=== PATIENT | male | born 1965 | race Caucasian/White ===

== ENCOUNTER 2016-12-24 06:02 | Day surgery (SDC) | payer OTHER, MEDICARE ==
[~2016-12-24] VITALS: Ht 182.9 cm; Wt 149.7 kg
[~2016-12-24 06:02] MED LIST: ADLT ASA LOW81 MG OR; ADVAIR DISK1 INH; ADVAIR DISK2 IN; ANDROGEL1 % TD; BACTRIM DS1 TAB OR; CARDIZEM CD240 MG PO; CEPHALEXIN500 MG OR; CIPRO500 MG OR; CIPROFLOXACN500 MG PO; COENZYME Q-10100 MG PO; COMBIVENT IN; CONTRAVE 8-90 M1 TAB; CONTRAVE PO; COUMADIN5 MG PO; COUMADIN7.5 MG OR; DIGOXIN0.25 MG PO; DILT-XR240 MG PO; DIOVAN40 MG OR; DIOVAN80 MG OR; DOXYCYCLINE20 MG PO; DOXYCYCLINE40 MG PO; FENOFIBRATE160 MG OR; FENOFIBRATE200 MG PO; FISH OIL MAXI1200 M1 PO; FLECAINIDE ACE100 MG PO; FLECAINIDE100 MG PO; FUROSEMIDE20 MG PO; GLYBURIDE5 MG PO; HYCODAN1 ML OR; KEFLEX500 M1 PO; LASIX20 MG PO; LIPITOR40 M1 PO; LISINOPRIL10 MG PO; LOFIBRA200 MG PO; LOPRESSOR25 MG PO; LOPRESSOR50 M1 PO; LORTAB 5/3255 MG PO; LORTAB 7.57.5 MG PO; LORTAB5 OR; LOVENOX 4040 MG/0.4 SC; MEDDOSEPAK OR; METFORMIN HCL1000 MG PO; METFORMIN HCL500 M2 PO; METOPROL TAR50 MG OR; METRONIDAZOL500 MG PO; OMEGA 31200 MG PO; ONGLYZA5 MG PO; ORACEA PO; PRAVASTATIN SOD20 MG PO; PREDNISONE10 M1 OR; PREVACID15 M1 PO; PREVACID15 M3 PO; SINGULAIR10 MG PO; TAMSULOSIN0.4 MG PO; TRUETEST STRIPS VI; WARFARIN10 MG OR; WARFARIN2.5 MG PO; WARFARIN5 MG PO; WARFARIN7.5 MG PO; ZITHROMAX250 MG OR
[2016-12-24 09:54] VITALS: BP 124/59
== END 2016-12-24 10:01 | disposition home or self-care (01) | DRG 392 ==
LOC: ENDO 06:02 → ORM 07:00 → ENDO 08:30 → ORM 08:45 → ENDO 08:45
PROVIDERS: ATTEND Surgery
PROC: 0DB78ZX Excision of Stomach, Pylorus, Via Natural or Artificial Opening Endoscopic, Diagnostic (ICD-10-PCS; principal; 2016-12-24)
PROC: 0DJD8ZZ Inspection of Lower Intestinal Tract, Via Natural or Artificial Opening Endoscopic (ICD-10-PCS; 2016-12-24)
DX: K21.9 Gastro-esophageal reflux disease without esophagitis (principal); K31.7 Polyp of stomach and duodenum; Z12.11 Encounter for screening for malignant neoplasm of colon; K29.50 Unspecified chronic gastritis without bleeding; K29.80 Duodenitis without bleeding; Z86.010 Personal history of colon polyps

== ENCOUNTER 2017-09-28 00:36 | Observation (INO) | payer OTHER, MEDICARE ==
[~2017-09-28] VITALS: Ht 182.9 cm; Wt 161.0 kg
[2017-09-28 01:12] LABS: HEMOGLOBIN 14.4 g/dl (14.0-18.0); IMMATURE GRANULOCYTES 0.4 % (0.0-1.0); MEAN CELL VOLUME 85.1 fL CALC (80.0-100.0); MEAN CORPUSCULAR HGB 27.9 pG CALC (26.0-32.0); MEAN CORPUSCULAR HGB CONC 32.7 g/L CALC (32.0-36.0); NEUT# 7.43 thou/uL (1.82-7.42); RED BLOOD COUNT 5.17 mill/uL (4.70-6.10)
[2017-09-28] MEDS ORDERED: TAMSULOSIN HCL0.4 MG PO (01:20)
[2017-09-28] MEDS ORDERED: DEXILANT60 MG PO (01:21)
[2017-09-28 01:38] LABS: ALBUMIN 4.2 g/dL (3.2-5.0); ALKALINE PHOSPHATASE 69 u/l (38-126); ANION GAP 16 (6-22 (CALC)); BILIRUBIN, TOTAL 0.7 mg/dL (0.0-1.4); BUN 15 mg/dL (9-20); BUN/CREATININE RATIO 16 (12-20 (CALC)); CARBON DIOXIDE 24 mmol/l (22-30); CHLORIDE 104 mmol/l (95-108); GFR > 60 ML/MIN (>=60 (CALC)); GFR FOR AFR.AMER. > 60 ML/MIN (>=60 (CALC)); POTASSIUM 4.1 mmol/l (3.5-5.1); SGOT/AST 29 u/l (17-59); SGPT/ALT 42 u/l (21-72); SODIUM 140 mmol/l (137-146); TOTAL PROTEIN 7.5 g/dL (6.3-8.2)
[2017-09-28 01:45] LABS: MYOGLOBIN 109 ng/mL (0 - 121)
[2017-09-28 01:49] LABS: INFLUENZA A NONE DETECTED (NONE DETECT); INFLUENZA B NONE DETECTED (NONE DETECT)
[2017-09-28 03:40] VITALS: BP 135/84
[2017-09-28 06:20] LABS: URINE BILIRUBIN - DIPSTICK NEGATIVE (NEGATIVE); URINE BLOOD DIPSTICK MODERATE (NEGATIVE); URINE COLOR YELLOW; URINE GLUCOSE - DIPSTICK 100 mg/dL (NEGATIVE); URINE KETONE NEGATIVE (NEGATIVE); URINE LEUK ESTERASE NEGATIVE (NEGATIVE); URINE NITRITE - DIPSTICK NEGATIVE (Negative); URINE PROTEIN - DIPSTICK 100 mg/dL (NEG-TRACE); URINE SPECIFIC GRAVITY >=1.030; URINE UROBILINOGEN - DIPSTICK 0.2 E.U./dL (0.2)
[2017-09-28 06:22] LABS: URINE CLARITY CLEAR
[2017-09-28 06:45] LABS: URINE BACTERIA MODERATE hpf; URINE MUCUS FEW hpf (NONE-FEW); URINE WBC 0-2 WBC/hpf (0-5)
[2017-09-28 06:50] LABS: URINE EPITHELIAL CELLS FEW EPI/hpf (0-FEW); URINE URIC ACID CRYSTALS FEW lpf
[2017-09-28 08:30] LABS: MAGNESIUM 1.7 mg/dL (1.6-2.3)
[2017-09-28 08:57] LABS: INTERNATIONAL NORMALIZED RATIO 1.6 RATIO (0.7-1.3); PROTHROMBIN TIME 17.5 SECONDS (9.0-12.5)
[2017-09-28 09:03] VITALS: BP 156/72
[2017-09-28 09:16] LABS: CHOLESTEROL HDL RATIO 3.9 (<4.4 (CALC))
[2017-09-28 11:00] VITALS: BP 138/100
[2017-09-28 11:57] VITALS: BP 136/93
[2017-09-28 15:24] VITALS: BP 125/72
[2017-09-28 19:59] VITALS: BP 146/94
[2017-09-29 00:13] VITALS: BP 140/85
[2017-09-29 04:56] VITALS: BP 107/86
[2017-09-29 05:32] LABS: HEMATOCRIT 41.6 % (39.0-50.0); HEMOGLOBIN 13.7 g/dl (14.0-18.0); IMMATURE GRANULOCYTES 0.4 % (0.0-1.0); MEAN CELL VOLUME 85.6 fL CALC (80.0-100.0); MEAN CORPUSCULAR HGB 28.2 pG CALC (26.0-32.0); MEAN CORPUSCULAR HGB CONC 32.9 g/L CALC (32.0-36.0); NEUT# 15.26 thou/uL (1.82-7.42); RED BLOOD COUNT 4.86 mill/uL (4.70-6.10); RED CELL DISTRI WIDTH 15.1 % (11.5-15.5)
[2017-09-29 05:40] LABS: ANION GAP 20 (6-22 (CALC)); BUN 17 mg/dL (9-20); BUN/CREATININE RATIO 24 (12-20 (CALC)); CARBON DIOXIDE 24 mmol/l (22-30); CHLORIDE 104 mmol/l (95-108); CREATININE 0.7 mg/dL (0.7-1.3); GFR > 60 ML/MIN (>=60 (CALC)); GFR FOR AFR.AMER. > 60 ML/MIN (>=60 (CALC)); MAGNESIUM 1.8 mg/dL (1.6-2.3); POTASSIUM 4.5 mmol/l (3.5-5.1); SODIUM 143 mmol/l (137-146)
[2017-09-29 08:21] VITALS: BP 142/81
[2017-09-29 08:40] LABS: INTERNATIONAL NORMALIZED RATIO 1.6 RATIO (0.7-1.3); PROTHROMBIN TIME 18.5 SECONDS (9.0-12.5)
[2017-09-29 12:03] VITALS: BP 124/67
[2017-09-29] MEDS ORDERED: IPRATROPIU0.5 MG/3 M NEB (12:18)
[2017-09-29] MEDS ORDERED: PREDNISONE10 MG PO (12:18)
[2017-09-29] MEDS ORDERED: ZITHROMAX500 MG PO (12:18)
== END 2017-09-29 13:44 | disposition home or self-care (01) | DRG 191 ==
LOC: ED 00:36 → ED-I 02:50 → ED 03:13 → MS2 03:14
PROVIDERS: Emergency Medicine; Nurse Practitioner Family; ADMIT Internal Medicine; ATTEND Internal Medicine
DX: J44.1 Chronic obstructive pulmonary disease with (acute) exacerbation (principal); J44.0 Chronic obstructive pulmonary disease with (acute) lower respiratory infection; J20.9 Acute bronchitis, unspecified; J45.901 Unspecified asthma with (acute) exacerbation; E66.01 Morbid (severe) obesity due to excess calories; I48.91 Unspecified atrial fibrillation; I48.92 Unspecified atrial flutter; Z68.42 Body mass index [BMI] 45.0-49.9, adult; G47.33 Obstructive sleep apnea (adult) (pediatric); E11.9 Type 2 diabetes mellitus without complications; E78.5 Hyperlipidemia, unspecified; I10 Essential (primary) hypertension; Z85.528 Personal history of other malignant neoplasm of kidney; Z79.01 Long term (current) use of anticoagulants
CPT/HCPCS: G0378

== ENCOUNTER 2017-11-04 06:47 | Day surgery (SDC) | payer OTHER, MEDICARE ==
[~2017-11-04 06:47] MED LIST changes: +ADVAIR DISK1 IN; +DEXILANT60 MG PO; +FISH OIL1200 M1 PO; +IPRATROPIU0.5 MG/3 M NEB; +PREDNISONE10 MG PO; +TAMSULOSIN HCL0.4 MG PO; +ZITHROMAX500 MG PO
[2017-11-04] MEDS ORDERED: MOTRIN800 MG PO (10:32)
[2017-11-04 11:38] VITALS: BP 132/72
== END 2017-11-04 10:55 | disposition home or self-care (01) | DRG 607 ==
LOC: ORM 06:47
PROVIDERS: ATTEND Surgery
PROC: 0HB4XZZ Excision of Neck Skin, External Approach (ICD-10-PCS; principal; 2017-11-04)
DX: L72.0 Epidermal cyst (principal); I48.91 Unspecified atrial fibrillation; I10 Essential (primary) hypertension; E78.5 Hyperlipidemia, unspecified; N40.0 Benign prostatic hyperplasia without lower urinary tract symptoms; E66.9 Obesity, unspecified

== ENCOUNTER 2019-02-13 06:32 | Emergency (ER) | payer OTHER, MEDICARE ==
[~2019-02-13] VITALS: Ht 182.9 cm; Wt 164.5 kg
[~2019-02-13 06:32] MED LIST changes: +MOTRIN800 MG PO
[2019-02-13 07:21] LABS: HEMATOCRIT 42.6 % (39.0-50.0); HEMOGLOBIN 13.8 g/dl (14.0-18.0); IMMATURE GRANULOCYTES 0.3 % (0.0-5.0); MEAN CELL VOLUME 83.9 fL CALC (80.0-100.0); MEAN CORPUSCULAR HGB 27.2 pG CALC (26.0-32.0); MEAN CORPUSCULAR HGB CONC 32.4 g/L CALC (32.0-36.0); NEUT# 4.84 thou/uL (1.82-7.42); RED BLOOD COUNT 5.08 mill/uL (4.70-6.10); RED CELL DISTRI WIDTH 14.6 % (11.5-15.5)
[2019-02-13 07:37] LABS: ALBUMIN 4.6 g/dL (3.2-5.0); ALKALINE PHOSPHATASE 54 u/l (38-126); ANION GAP 17 (6-22 (CALC)); BUN 19 mg/dL (9-20); BUN/CREATININE RATIO 19 (12-20 (CALC)); CARBON DIOXIDE 24 mmol/l (22-30); CHLORIDE 102 mmol/l (95-108); GFR > 60 ML/MIN (>=60 (CALC)); GFR FOR AFR.AMER. > 60 ML/MIN (>=60 (CALC)); SGOT/AST 29 u/l (17-59); SODIUM 140 mmol/l (137-146); TOTAL PROTEIN 7.6 g/dL (6.3-8.2)
[2019-02-13 07:49] LABS: MYOGLOBIN 182 ng/mL (0 - 121)
[2019-02-13 07:57] LABS: BILIRUBIN, TOTAL 0.8 mg/dL (0.0-1.4)
[2019-02-13] MEDS ORDERED: CEPHALEXIN500 MG PO (08:12)
[2019-02-13] MEDS ORDERED: ROBITUSSIN AC10 ML PO (08:12)
[2019-02-13 08:22] VITALS: BP 140/91
== END 2019-02-13 08:29 | disposition home or self-care (01) | DRG 153 ==
LOC: ED 06:32
PROVIDERS: Emergency Medicine
DX: J06.9 Acute upper respiratory infection, unspecified (principal); I11.0 Hypertensive heart disease with heart failure; I50.9 Heart failure, unspecified; I48.91 Unspecified atrial fibrillation

== ENCOUNTER 2019-08-03 | Emergency (ER) | payer OTHER, MEDICARE ==
[~2019-08-03] MED LIST changes: +CEPHALEXIN500 MG PO; +ROBITUSSIN AC10 ML PO
[2019-08-03] MEDS ORDERED: XARELTO20 MG PO (14:51)
[2019-08-03] MEDS ORDERED: IPRATROPIU0.5 MG/3 M IN (14:52)
[2019-08-03] MEDS ORDERED: METFORMIN HYD1000 MG PO (14:52)
[2019-08-03] MEDS ORDERED: CYCLOBENZAPRINE10 MG PO (14:52)
[2019-08-03] MEDS ORDERED: OXYCODONE10 M1 PO (14:53)
[2019-08-03 15:05] LABS: HEMATOCRIT 42.7 % (39.0-50.0); HEMOGLOBIN 13.9 g/dl (14.0-18.0); IMMATURE GRANULOCYTES 0.6 % (0.0-5.0); MEAN CELL VOLUME 84.4 fL CALC (80.0-100.0); MEAN CORPUSCULAR HGB 27.5 pG CALC (26.0-32.0); MEAN CORPUSCULAR HGB CONC 32.6 g/dL CAL (32.0-36.0); NEUT# 7.15 thou/uL (1.82-7.42); RED BLOOD COUNT 5.06 mill/uL (4.70-6.10); RED CELL DISTRI WIDTH 14.7 % (11.5-15.5)
[2019-08-03 15:23] LABS: ALBUMIN 4.6 g/dL (3.2-5.0); ALKALINE PHOSPHATASE 36 u/l (38-126); BUN 19 mg/dL (9-20); BUN/CREATININE RATIO 20 (12-20 (CALC)); CARBON DIOXIDE 22 mmol/l (22-30); CHLORIDE 98 mmol/l (95-108); GFR > 60 ML/MIN (>=60 (CALC)); GFR FOR AFR.AMER. > 60 ML/MIN (>=60 (CALC)); LIPASE 117 u/l (23-300); POTASSIUM 4.8 mmol/l (3.5-5.1); SGOT/AST 42 u/l (17-59); TOTAL PROTEIN 8.5 g/dL (6.3-8.2)
[2019-08-03 15:24] LABS: ANION GAP 17 (6-22 (CALC)); BILIRUBIN, TOTAL 1.4 mg/dL (0.0-1.4); SODIUM 132 mmol/l (137-146)
[2019-08-03 15:52] LABS: URINE BILIRUBIN - DIPSTICK NEGATIVE (NEGATIVE); URINE BLOOD DIPSTICK TRACE-LYSED (NEGATIVE); URINE COLOR YELLOW; URINE GLUCOSE - DIPSTICK NEGATIVE (NEGATIVE); URINE KETONE NEGATIVE (NEGATIVE); URINE LEUK ESTERASE TRACE (NEGATIVE); URINE NITRITE - DIPSTICK NEGATIVE (Negative); URINE PROTEIN - DIPSTICK TRACE mg/dL (NEG-TRACE); URINE SPECIFIC GRAVITY >=1.030; URINE UROBILINOGEN - DIPSTICK 0.2 E.U./dL (0.2)
[2019-08-03] MEDS ORDERED: VOLTAREN1%GEL TOP (16:06)
== END 2019-08-03 16:40 | disposition home or self-care (01) | DRG 392 ==
PROVIDERS: Family Medicine
DX: R10.9 Unspecified abdominal pain (principal); I11.0 Hypertensive heart disease with heart failure; I50.9 Heart failure, unspecified; I48.91 Unspecified atrial fibrillation; E11.9 Type 2 diabetes mellitus without complications; Z79.84 Long term (current) use of oral hypoglycemic drugs

== ENCOUNTER 2019-08-06 | Emergency (ER) | payer OTHER, MEDICARE ==
[~2019-08-06] MED LIST changes: +CYCLOBENZAPRINE10 MG PO; +IPRATROPIU0.5 MG/3 M IN; +METFORMIN HYD1000 MG PO; +OXYCODONE10 M1 PO; +VOLTAREN1%GEL TOP; +XARELTO20 MG PO
[2019-08-06 04:38] LABS: HEMATOCRIT 43.5 % (39.0-50.0); IMMATURE GRANULOCYTES 0.4 % (0.0-5.0); MEAN CELL VOLUME 85.6 fL CALC (80.0-100.0); MEAN CORPUSCULAR HGB 27.6 pG CALC (26.0-32.0); MEAN CORPUSCULAR HGB CONC 32.2 g/dL CAL (32.0-36.0); NEUT# 9.87 thou/uL (1.82-7.42); RED BLOOD COUNT 5.08 mill/uL (4.70-6.10); RED CELL DISTRI WIDTH 14.5 % (11.5-15.5)
[2019-08-06 04:40] LABS: URINE BILIRUBIN - DIPSTICK NEGATIVE (NEGATIVE); URINE BLOOD DIPSTICK LARGE (NEGATIVE); URINE COLOR YELLOW; URINE GLUCOSE - DIPSTICK 250 mg/dL (NEGATIVE); URINE KETONE NEGATIVE (NEGATIVE); URINE LEUK ESTERASE TRACE (NEGATIVE); URINE NITRITE - DIPSTICK NEGATIVE (Negative); URINE PH 5.5 (4.5-8.0); URINE PROTEIN - DIPSTICK 100 mg/dL (NEG-TRACE); URINE SPECIFIC GRAVITY >=1.030; URINE UROBILINOGEN - DIPSTICK 0.2 E.U./dL (0.2)
[2019-08-06 04:50] LABS: URINE RBC 50-100 RBC/hpf (0-5); URINE URIC ACID CRYSTALS MANY lpf
[2019-08-06 05:01] LABS: ALBUMIN 4.4 g/dL (3.2-5.0); ALKALINE PHOSPHATASE 49 u/l (38-126); AMYLASE < 30 u/l (30-110); ANION GAP 17 (6-22 (CALC)); BILIRUBIN, TOTAL 0.7 mg/dL (0.0-1.4); BUN 27 mg/dL (9-20); BUN/CREATININE RATIO 16 (12-20 (CALC)); CARBON DIOXIDE 24 mmol/l (22-30); CHLORIDE 100 mmol/l (95-108); CREATININE 1.6 mg/dL (0.7-1.3); GFR 45 ML/MIN (>=60 (CALC)); GFR FOR AFR.AMER. 55 ML/MIN (>=60 (CALC)); LIPASE 209 u/l (23-300); SGOT/AST 25 u/l (17-59); SODIUM 136 mmol/l (137-146); TOTAL PROTEIN 7.6 g/dL (6.3-8.2)
[2019-08-06] MEDS ORDERED: TAMSULOSIN0.4 MG PO (05:58)
[2019-08-06] MEDS ORDERED: LORTAB 5/3255 MG PO (05:58)
[2019-08-06] MEDS ORDERED: PHENERGAN25 MG RE (05:58)
[2019-08-07] MEDS ORDERED: PREDNISONE50 MG PO (04:43)
== END 2019-08-06 06:06 | disposition home or self-care (01) | DRG 694 ==
PROVIDERS: Family Medicine
DX: N13.2 Hydronephrosis with renal and ureteral calculous obstruction (principal); I11.0 Hypertensive heart disease with heart failure; I50.9 Heart failure, unspecified; E11.9 Type 2 diabetes mellitus without complications; I48.91 Unspecified atrial fibrillation; Z85.528 Personal history of other malignant neoplasm of kidney; Z90.5 Acquired absence of kidney; Z79.84 Long term (current) use of oral hypoglycemic drugs

== ENCOUNTER 2019-08-07 | Emergency (ER) | payer OTHER, MEDICARE ==
[~2019-08-07] MED LIST changes: +PHENERGAN25 MG RE
[2019-08-07 03:33] LABS: HEMATOCRIT 43.1 % (39.0-50.0); HEMOGLOBIN 13.8 g/dl (14.0-18.0); IMMATURE GRANULOCYTES 0.4 % (0.0-5.0); MEAN CORPUSCULAR HGB 27.5 pG CALC (26.0-32.0); NEUT# 6.93 thou/uL (1.82-7.42); RED BLOOD COUNT 5.01 mill/uL (4.70-6.10); RED CELL DISTRI WIDTH 14.9 % (11.5-15.5)
[2019-08-07 03:45] LABS: D-DIMER 0.87 mg/L (0.19-0.60); PROTHROMBIN TIME 19.9 SECONDS (9.0-12.5)
[2019-08-07 03:46] LABS: ALBUMIN 4.6 g/dL (3.2-5.0); ALKALINE PHOSPHATASE 51 u/l (38-126); BUN 26 mg/dL (9-20); BUN/CREATININE RATIO 11 (12-20 (CALC)); CHLORIDE 98 mmol/l (95-108); CREATININE 2.3 mg/dL (0.7-1.3); GFR 30 ML/MIN (>=60 (CALC)); GFR FOR AFR.AMER. 36 ML/MIN (>=60 (CALC)); POTASSIUM 3.8 mmol/l (3.5-5.1); SGOT/AST 28 u/l (17-59); SODIUM 136 mmol/l (137-146); TOTAL PROTEIN 8.3 g/dL (6.3-8.2)
[2019-08-07 03:53] LABS: ANION GAP 25 (6-22 (CALC)); BILIRUBIN, TOTAL 1.4 mg/dL (0.0-1.4); CARBON DIOXIDE 17 mmol/l (22-30)
[2019-08-07 03:58] LABS: MYOGLOBIN 113 ng/mL (0 - 121)
[2019-08-07] MEDS ORDERED: PREDNISONE50 MG PO (04:43)
== END 2019-08-07 05:05 | disposition home or self-care (01) | DRG 203 ==
PROVIDERS: Family Medicine
DX: J45.901 Unspecified asthma with (acute) exacerbation (principal); I11.0 Hypertensive heart disease with heart failure; I50.9 Heart failure, unspecified; E11.9 Type 2 diabetes mellitus without complications; Z79.84 Long term (current) use of oral hypoglycemic drugs; Z20.828 Contact with and (suspected) exposure to other viral communicable diseases

== ENCOUNTER 2019-08-08 | Inpatient (IN) | payer OTHER, MEDICARE ==
[2019-08-08] VITALS (19 sets, daily range): BP systolic 71–142; BP diastolic 45–79
[~2019-08-08] MED LIST changes: +PREDNISONE50 MG PO
--- NOTE | 2019-08-08 03:45 | NUR ---
TO TX ROOM VIA W/C. AT SIDE. STATES WAS FINE YESTERDAY MORNING BUT BECAME SOB JUST WITHIN THE PAST HOUR... "SAME LAST NIGHT"
--- NOTE | 2019-08-08 04:15 | NUR ---
PATIENT RECEIVING NEB TREATMENT. IV ESTABLISHED AND SECURED WITH COBAN. PATIENT IS DIAPHORETIC AND COOL. PATIENT SAT IS 96%, HEART RATE AND BP ELEVATED. MD AWARE. AWAITING ORDERS.
--- NOTE | 2019-08-08 04:45 | NUR ---
PATIENT STATES LITTLE CHANGE IN HIS FEELING OF SOB. PATIENT HAS A NON PRODUCTIVE COUGH, C/O FEELING WEAK AND TIRED. STATES HE HASN'T EATEN OR SLEPT WELL IN DAYS. PATIENT MEDICATED FOR HR AND BP. WILL MONITOR FOR EFFECT. CALL LIGHT WITHIN REACH. PATIENT'S AT BEDSIDE. AWARE OF PENDING LABS AND PROBABLE ADMISSION.
[2019-08-08 05:16] LABS: HEMATOCRIT 38.3 % (39.0-50.0); HEMOGLOBIN 12.8 g/dl (14.0-18.0); IMMATURE GRANULOCYTES 3.4 % (0.0-5.0); MEAN CELL VOLUME 82.2 fL CALC (80.0-100.0); MEAN CORPUSCULAR HGB 27.5 pG CALC (26.0-32.0); MEAN CORPUSCULAR HGB CONC 33.4 g/dL CAL (32.0-36.0); NEUT# 5.08 thou/uL (1.82-7.42); RED BLOOD COUNT 4.66 mill/uL (4.70-6.10); RED CELL DISTRI WIDTH 15.1 % (11.5-15.5)
[2019-08-08 05:28] LABS: ALBUMIN 3.9 g/dL (3.2-5.0); POTASSIUM 3.2 mmol/l (3.5-5.1); TOTAL PROTEIN 7.3 g/dL (6.3-8.2)
[2019-08-08 05:32] LABS: BILIRUBIN, TOTAL 0.8 mg/dL (0.0-1.4); CREATININE 3.7 mg/dL (0.7-1.3)
--- NOTE | 2019-08-08 05:46 | NUR ---
PATIENT MEDICATED ORDERED. DISCUSSED LABS WITH PATIENT AND SPOUSE. STATES HE HAS HAD TROUBLE WITH DEHYDRATION IN THE PAST AND OFTEN HAS DIARRHEA FROM HIS METFORMIN. PATIENT ADMITS TO POOR PO INTAKE FOR THE LAST SEVERAL DAYS.
--- NOTE | 2019-08-08 06:15 | NUR ---
CARDIZEM GTT INCREASED TO 10MG. HR 130. PATIENT TOLERATING FLUIDS AND CARDIZEM WELL. ABLE TO SIT BACK ON STRETCHER. PATIENT AWARE OF ADMISSION. AWAITING ORDERS AND ROOM ASSIGNMENT. PATIENT DENIES ANY NEW COMPLAINTS.
--- NOTE | 2019-08-08 06:44 | NUR ---
CARDIZEM REMAINS AT 10MG. BP 100/55. PATIENT STATES HE IS FEELING A LITTLE BETTER. MED RECON COMPLETED WITH PATIENT AND SPOUSE.
--- NOTE | 2019-08-08 06:53 | NUR ---
REPORT CALLED TO [facility]. PATIENT READIED FOR TRANSPORT TO FLOOR VIA STRETCHER, ON O2, WITH RN
--- NOTE | 2019-08-08 07:23 | NUR ---
PT ARRIVED TO ICU8 FROM ER BY STRETCHER WITH CARDIZEM & NS, TELE, & 2L O2. PT ABLE TO TRANSFER TO NEW BED; PT BECAME SOB. O2 TITRATED UP TO 4L NC.
--- NOTE | 2019-08-08 07:32 | NUR ---
RT CALLED D/T PTS LABORED BREATHING/ EXERTIONAL SOB AFTER TRANSFERING TO NEW BED.
--- NOTE | 2019-08-08 07:42 | NUR ---
PT ASKED THIS RN TO CALL HIS FOR ADMISSION QUESTIONS. IS DRIVING, WILL CALL BACK WHEN SHE GETS TO HER DESK.
--- NOTE | 2019-08-08 07:51 | NUR ---
CALLED TO PT ROOM TO GIVE TX. PT EXPIERENCING LABORED RESPIRATIONS AT THIS TIME. JOSE ANTONIO KIRK AWARE AND AT BEDSIDE. HR 126 RR 20
--- NOTE | 2019-08-08 08:00 | NUR ---
PT CAME TO [facility] ER FOR SOB STARTING EARLY THIS AM. PT WAS SEEN IN [facility] ER LAST THU, THU, & SAT FOR BACK PAIN & KIDNEY STONES. STATES PT HAS BEEN GETTING WEAKER & MORE SOB ALL WEAK. DENIES ALLERGIES. DIARRHEA x1 WEEK, WHICH SOME TIMES HAPPENS WITH HIS METFORMIN. NON INSULIN DEPENDENT DIABETIC. PT HAS HAD DARK URINE. BRUISES ON ARMS FROM FREQUENT VISITS TO ER. REDDNESS TO BLE. NO RECENT FALLS. NO MOBILITY AIDS AT HOME. TAKES OXY OCCASSIONALY FOR PAIN. AMISH: NONE. PRIMARY LANGUAGE: ENGLLISH. LIVES AT HOME WITH , DRIVES SELF. DR Jaren MCLEOD IS BOOT MAKER.
--- NOTE | 2019-08-08 08:25 | NUR ---
2ND IV ESTABLISHED TO LFA. MAGNESIUM DRIP STARTED.
--- NOTE | 2019-08-08 08:35 | NUR ---
DR JOHNSON @BEDSIDE WITH PT. PTS BREATHING LESS LABORED. REMAINS DIAPHORETIC. EXPIRATORY WHEEZING & COARSE CRACKLES TO ALL LOBES. TACHYCARDIC, HYPOTENSIVE. NS OPENED TO BOLUS, PER DR JOHNSON.
--- NOTE | 2019-08-08 09:47 | NUR ---
STAFF @BEDSIDE TO ASSIST PT WITH URINAL.
--- NOTE | 2019-08-08 10:55 | NUR ---
@BEDSIDE TO DRAW TROPONIN. PT REFUSING CATH ANIYA. PT STATES HE'S GOING TO CALL PATTI (FROM LAB) TO FIND OUT HIS TEST RESULTS. EDUCATED PT ON HIPPA. NO COVID RESULTS BACK AT THIS TIME.
--- NOTE | 2019-08-08 11:02 | NUR ---
DR JOHNSON ON UNIT
--- NOTE | 2019-08-08 11:35 | NUR ---
ACCUCHECK COMPLETED: 255. #16F CATH KWAN INSERTED, PER PT REQUEST, USING STERILE TECHNIQUE. PT MEDICATED TO HELP PT RELAX. RT @BEDSIDE.
--- NOTE | 2019-08-08 12:00 | NUR ---
PT OBSERVED RESTING IN BED, USING ABD & ACCESSORY MUSCLES TO BREATH. DR JOHNSON NOTIFIED, RBVOT FOR ABG. RT AWARE.
--- NOTE | 2019-08-08 12:00 | NUR ---
PT BACK ON UNIT. ABLE TO AMBULATE TO NEW BED. ON MONITORS. ABLE TO COMMUNICATE WITH STAFF, FREINDLY, JOKING. PT LOOKING FOWARD TO EATING LUNCH.
--- NOTE | 2019-08-08 12:30 | NUR ---
DR CROFT @BEDSIDE FOR CONSULT.
--- NOTE | 2019-08-08 13:40 | NUR ---
RT @BEDSIDE TO PLACE PT ON BIPAP. PT UPDATED ON POC.
--- NOTE | 2019-08-08 14:17 | NUR ---
@BEDSIDE TO START IV ABX, PTS BREATHING EVEN/UNLABORED ON BIPAP. AWARE.
--- NOTE | 2019-08-08 15:02 | NUR ---
STATE RESULTS OF COVID STILL PENDING. TESTED THURSDAY.
--- NOTE | 2019-08-08 17:30 | NUR ---
PT SLEEPING IN ROOM. BREATHING EVEN/UNLABORED. CALLBELL W/IN REACH. NO S/S OF DISTRESS AT THIS TIME. WILL CONTINUE TO MONITOR.
--- NOTE | 2019-08-08 18:02 | NUR ---
RT @BEDSIDE FRO BREATHING TREATMENT.
--- NOTE | 2019-08-08 18:44 | NUR ---
PT C/O SHARP PAIN TO GENERALIZED BACK. MEDICATED & PILLOWS REPOSITIONED. DINNER PLACED ON PTS BEDSIDE TABLE. PT STATES HE ONLY WANTS THE COLD DRINK.
--- NOTE | 2019-08-08 18:55 | NUR ---
RECEIVED REPORT FROM [facility].
--- NOTE | 2019-08-08 19:35 | NUR ---
PT AWAKE AND ALERT, ATE 50% DINNER. PT RELATED HIS BUTT WAS SORE, ENCOURAGED PT TO REPOSITION SELF. NO C/O RESP DIFF AT THIS TIME. CALL KAMARA IN PLACE.
--- NOTE | 2019-08-08 20:00 | NUR ---
RECEIVED STATE COVID RESULT OF "NOT DETECTED"
--- NOTE | 2019-08-08 21:20 | NUR ---
CALL PLACED TO DR CROFT REGARDING HEPARIN GTT. MESSAGE LEFT.
--- NOTE | 2019-08-08 21:50 | NUR ---
DR CROFT RETURNED CALL, HEPARIN GTT ORDER CLARIFIED.
--- NOTE | 2019-08-08 22:00 | NUR ---
RESP AT BEDSIDE, RECEIVING NEB TX. PT PLACED ON BI-PAP.
[2019-08-09] VITALS (32 sets, daily range): BP systolic 57–205; BP diastolic 11–111
--- NOTE | 2019-08-09 | NUR ---
PT WITH EYES CLOSED, TOLERATING C-PAP WITH NO DISTRESS. CALL KAMARA IN REACH.
--- NOTE | 2019-08-09 02:00 | NUR ---
PT ON BI-PAP, TOLERATING WELL. PT SLEEPING, RESPONDS TO VERBAL STIMULI. CALL KAMARA IN REACH.
[2019-08-09 03:51] LABS: URINE BILIRUBIN - DIPSTICK NEGATIVE (NEGATIVE); URINE BLOOD DIPSTICK LARGE (NEGATIVE); URINE COLOR YELLOW; URINE GLUCOSE - DIPSTICK NEGATIVE (NEGATIVE); URINE KETONE NEGATIVE (NEGATIVE); URINE NITRITE - DIPSTICK NEGATIVE (Negative); URINE PROTEIN - DIPSTICK TRACE mg/dL (NEG-TRACE); URINE SPECIFIC GRAVITY 1.025; URINE UROBILINOGEN - DIPSTICK 0.2 E.U./dL (0.2)
[2019-08-09 03:53] LABS: PROTHROMBIN TIME 14.5 SECONDS (9.0-12.5)
[2019-08-09 03:56] LABS: INTERNATIONAL NORMALIZED RATIO 1.4 RATIO (0.7-1.3)
[2019-08-09 03:57] LABS: URINE LEUK ESTERASE TRACE (NEGATIVE)
[2019-08-09 03:58] LABS: URINE BACTERIA FEW hpf; URINE EPITHELIAL CELLS MODERATE EPI/hpf (0-FEW); URINE MUCUS MODERATE hpf (NONE-FEW)
--- NOTE | 2019-08-09 04:00 | NUR ---
PT AWAKE AND ALERT. RESP AT BEDSIDE, NEB TX INITIATED. PLACED ON NC AFTER NEB TX BY RESP. CALL KAMARA IN REACH.
[2019-08-09 05:53] LABS: HEMATOCRIT 33.2 % (39.0-50.0); IMMATURE GRANULOCYTES 0.9 % (0.0-5.0); MEAN CELL VOLUME 85.1 fL CALC (80.0-100.0); MEAN CORPUSCULAR HGB 27.2 pG CALC (26.0-32.0); MEAN CORPUSCULAR HGB CONC 31.9 g/dL CAL (32.0-36.0); NEUT# 11.44 thou/uL (1.82-7.42); RED BLOOD COUNT 3.9 mill/uL (4.70-6.10); RED CELL DISTRI WIDTH 15.9 % (11.5-15.5)
--- NOTE | 2019-08-09 06:00 | NUR ---
HEPARIN GTT STARTED PER LOW DOSE, 2500 UNIT BOLUS 1000 UNITS PER HOUR
[2019-08-09 06:10] LABS: HEMOGLOBIN 10.6 g/dl (14.0-18.0)
[2019-08-09 06:18] LABS: CREATININE 2.9 mg/dL (0.7-1.3)
[2019-08-09 06:26] LABS: MAGNESIUM 2.4 mg/dL (1.6-2.3); POTASSIUM 4.5 mmol/l (3.5-5.1)
--- NOTE | 2019-08-09 06:45 | NUR ---
ANSWERED PTS CALLBELL TO FIND PT WITH LABORED BREATHING & BARKING COUGH. PLACED PT BACK ON BIPAP AND TRIED TO REPOSITION PT IN BED. CALLED HOUSE SUP FOR ATIVAN- NOT IN ICU PYXIS. ASKED FOR ASSISTANCE FROM OTHER ICU STAFF.
--- NOTE | 2019-08-09 06:58 | NUR ---
0645 PLACED PT BACK ON BIPAP FROM NC. PER SHIFT REPORT, PT WAS REMOVED FROM BIPAP AND PLACED ON NC AROUND 0500 & HEPARIN DRIP STARTED AROUND 0600. [address] JOHNSON TO UPDATE ON PTS STATUS. PT IN SVT IN 170'S & RESPIRATORY DISTRESS. 0658 RAPID RESPONSE CALLED. 0658 LOPRESSOR 5MG GIVEN IVP. ATIVAN 0.5MG GIVEN IVP. 0705 AFIB RATE IN 140'S. DR ESTRADA & RT @BEDSIDE. 0706 ACCUCHECK 230 0707 PT PREPPED FOR INTUBATION. PT AGREED TO INTUBATION, STATING HE WAS TIRED. 0710 EKG COMPLETED: AFIB RBR W/RATE OF 139 0712 NOTIFIED OF PTS STATUS. 0714 @BEDSIDE. 0721 ETOMIDATE 20MG & ROCORONIUM 150MG PUSHED BY DR ESTRADA. BP 138/72 0724 PT INTUBATED W/ETT 8.0, 22@LIP. 0733 CARDIZEM BOLUS OF 10MG THEN DRIP STARTED AT 10MG/HR. 0736 PT PREPPED FOR LEFT TRIPLE LUMEN IV. 0736 CARDIZEM 10MG IV BOLUS AGAIN. 0738 BP 205/98, HR 164, SATS 93% 0739 CALLED FOR STAT CXR TO VERIFY PLACEMENTS. 0741 PROPOFOL DRIP STARTED @20 0743 TLC COMPLETED 0746 CARDIZEM 10MG BOLUS AGAIN. 0747 FENTANYL 50MCG IVP BY DR ESTRADA. 0748 PROPOFUL BOLUS 15MG GIVEN PER VERBAL ORDER BY DR ESTRADA. 0750 PROPOFOL TITRATED UP TO 30. 0752 #18F OG PLACED. [address] ESTRADA SPOKE WITH DR JOHNSON. RAPID RESPONSE ALL CLEAR.
--- NOTE | 2019-08-09 08:27 | NUR ---
DR ESTRADA CALLED AFTER CXR RESULTS TO ASK RT TO DO AN ABG FROM NEW CENTRAL LINE D/R CXR RESULTS.
--- NOTE | 2019-08-09 09:20 | NUR ---
PHONED [facility] SPOKE TO [facility] RICKS INTIATED AT THIS TIME. CALLED RADIOLOGY FOR CD. FACE SHEET FAXED TO [facility] WELL.
--- NOTE | 2019-08-09 09:22 | NUR ---
LINK VICENTE GAVE TELEPHONE VERBAL CONSENT X2 NURSES Shalini CAMPO AND Surekha JUAREZ.
--- NOTE | 2019-08-09 09:38 | NUR ---
UPDATED DR CROFT ON PTS STATUS. RBVTO DR CROFT TO DC CARDIZEM DRIP & START AMIODORONE DRIP WITH 150 BOLUS. ORDER FAXED TO PHARMACY
--- NOTE | 2019-08-09 09:50 | NUR ---
SPOKE WITH MISBAH AT [facility] DR GHASSAN NOVAK WILL BE THE ACCEPTING MD. AWAITING BED ASSIGNMENT AT THIS TIME
--- NOTE | 2019-08-09 10:47 | NUR ---
CVP INITIATED ON CENTRAL LINE.
--- NOTE | 2019-08-09 11:17 | NUR ---
MISBAH FROM [facility] CALLED BED WILL BE 4R BED 10
--- NOTE | 2019-08-09 11:23 | NUR ---
CALLED [facility] FOR TRANSPORT.
--- NOTE | 2019-08-09 11:34 | NUR ---
[facility] ETA 18MINS
--- NOTE | 2019-08-09 11:52 | NUR ---
REPORT GIVEN TO MEÑO @[facility]. [phone]
--- NOTE | 2019-08-09 12:02 | NUR ---
[facility] @BEDSIDE WILL SEND THE NEXT APPROPRIATE AIRCRAFT.
--- NOTE | 2019-08-09 12:15 | NUR ---
PER [facility], THE PT IS TO LARGE FOR THEM. MD AWARE, STATES PT CAN GO BY GROUND.
--- NOTE | 2019-08-09 12:29 | NUR ---
[facility] ETA 30MINS
--- NOTE | 2019-08-09 13:46 | NUR ---
LEVOPHED STARTED @8 ON PT FOR HYPOTENSION.
--- NOTE | 2019-08-09 14:00 | NUR ---
PT OUT THE DOOR WITH [facility], IN STABLE CONDITION. NOTIFIED
--- NOTE | 2019-08-09 14:01 | NUR ---
PT TRANSPORTED TO [facility].
== END 2019-08-09 14:00 | disposition short-term general hospital (02) | DRG 208 ==
PROVIDERS: Family Medicine; Internal Medicine; ADMIT Internal Medicine
PROC: 5A09357 Assistance with Respiratory Ventilation, Less than 24 Consecutive Hours, Continuous Positive Airway Pressure (ICD-10-PCS; principal; 2019-08-08)
PROC: 0T9B70Z Drainage of Bladder with Drainage Device, Via Natural or Artificial Opening (ICD-10-PCS; 2019-08-08)
PROC: 5A1935Z Respiratory Ventilation, Less than 24 Consecutive Hours (ICD-10-PCS; 2019-08-09)
PROC: 0BH17EZ Insertion of Endotracheal Airway into Trachea, Via Natural or Artificial Opening (ICD-10-PCS; 2019-08-09)
PROC: 02HV33Z Insertion of Infusion Device into Superior Vena Cava, Percutaneous Approach (ICD-10-PCS; 2019-08-09)
DX: J45.901 Unspecified asthma with (acute) exacerbation (principal); J18.9 Pneumonia, unspecified organism; J96.02 Acute respiratory failure with hypercapnia; J96.01 Acute respiratory failure with hypoxia; N17.9 Acute kidney failure, unspecified; E87.2 Acidosis; I48.19 Other persistent atrial fibrillation; Z68.42 Body mass index [BMI] 45.0-49.9, adult; E86.0 Dehydration; I11.0 Hypertensive heart disease with heart failure; I50.9 Heart failure, unspecified; E87.6 Hypokalemia; G47.33 Obstructive sleep apnea (adult) (pediatric); E78.5 Hyperlipidemia, unspecified; E66.01 Morbid (severe) obesity due to excess calories; N20.0 Calculus of kidney; E83.42 Hypomagnesemia; E11.65 Type 2 diabetes mellitus with hyperglycemia; T38.0X5A Adverse effect of glucocorticoids and synthetic analogues, initial encounter; I95.9 Hypotension, unspecified; Z79.01 Long term (current) use of anticoagulants; Z79.84 Long term (current) use of oral hypoglycemic drugs; Z85.528 Personal history of other malignant neoplasm of kidney; Z90.5 Acquired absence of kidney
CPT/HCPCS: J0282; J1644; J2060; J3475

== ENCOUNTER 2020-04-27 06:28 | Emergency (ER) | payer OTHER, MEDICARE ==
[~2020-04-27] VITALS: Ht 182.9 cm; Wt 156.8 kg
[2020-04-27 07:05] LABS: HEMATOCRIT 45.8 % (39.0-50.0); HEMOGLOBIN 14.5 g/dl (14.0-18.0); IMMATURE GRANULOCYTES 0.3 % (0.0-5.0); MEAN CELL VOLUME 85.3 fL CALC (80.0-100.0); MEAN CORPUSCULAR HGB CONC 31.7 g/dL CAL (32.0-36.0); NEUT# 6.37 thou/uL (1.82-7.42); RED BLOOD COUNT 5.37 mill/uL (4.70-6.10); RED CELL DISTRI WIDTH 15.1 % (11.5-15.5)
[2020-04-27 07:23] LABS: ALBUMIN 4.3 g/dL (3.2-5.0); ALKALINE PHOSPHATASE 70 u/l (38-126); ANION GAP 15 (6-22 (CALC)); BILIRUBIN, TOTAL 0.5 mg/dL (0.0-1.4); BUN 19 mg/dL (9-20); BUN/CREATININE RATIO 21 (12-20 (CALC)); CARBON DIOXIDE 22 mmol/l (22-30); CHLORIDE 104 mmol/l (95-108); CREATININE 0.9 mg/dL (0.7-1.3); GFR > 60 ML/MIN (>=60 (CALC)); GFR FOR AFR.AMER. > 60 ML/MIN (>=60 (CALC)); POTASSIUM 4.2 mmol/l (3.5-5.1); SGOT/AST 23 u/l (17-59); SODIUM 138 mmol/l (137-146); TOTAL PROTEIN 7.1 g/dL (6.3-8.2)
[2020-04-27 07:36] VITALS: BP 132/72
[2020-04-27] MEDS ORDERED: HYDROXYZINE HYD25 MG PO (09:14)
[2020-04-27] MEDS ORDERED: BACTRIM DS1 TAB PO (09:14)
[2020-04-27] MEDS ORDERED: KEFLEX500 MG PO (09:14)
[2020-04-27] MEDS ORDERED: ULTRAM50 MG PO (09:14)
== END 2020-04-27 09:50 | disposition home or self-care (01) | DRG 603 ==
LOC: ED 06:28
PROVIDERS: Family Medicine
DX: L03.113 Cellulitis of right upper limb (principal); L30.9 Dermatitis, unspecified; L28.0 Lichen simplex chronicus; I48.91 Unspecified atrial fibrillation; E11.9 Type 2 diabetes mellitus without complications; I10 Essential (primary) hypertension; I50.9 Heart failure, unspecified; E78.5 Hyperlipidemia, unspecified; J45.909 Unspecified asthma, uncomplicated; Z79.01 Long term (current) use of anticoagulants; Z79.84 Long term (current) use of oral hypoglycemic drugs

== ENCOUNTER 2020-08-25 09:40 | Observation (INO) | payer OTHER, MEDICARE ==
[~2020-08-25] VITALS: Ht 182.9 cm; Wt 125.0 kg
[~2020-08-25 09:40] MED LIST changes: +BACTRIM DS1 TAB PO; +HYDROXYZINE HYD25 MG PO; +KEFLEX500 MG PO; +ULTRAM50 MG PO
--- NOTE | 2020-08-25 09:55 | NUR ---
PT AMBULATED TO ROOM AND PLACED IN A GOWN. PT INSTRUCTED IN PLAN OF CARE.
--- NOTE | 2020-08-25 10:00 | NUR ---
Reassessment of patient completed. No distress noted.
[2020-08-25 10:39] LABS: HEMATOCRIT 41.6 % (39.0-50.0); HEMOGLOBIN 13.4 g/dl (14.0-18.0); IMMATURE GRANULOCYTES 0.6 % (0.0-5.0); MEAN CELL VOLUME 83.9 fL CALC (80.0-100.0); MEAN CORPUSCULAR HGB CONC 32.2 g/dL CAL (32.0-36.0); NEUT# 12.19 thou/uL (1.82-7.42); RED BLOOD COUNT 4.96 mill/uL (4.70-6.10); RED CELL DISTRI WIDTH 15.2 % (11.5-15.5)
[2020-08-25 10:46] LABS: URINE BILIRUBIN - DIPSTICK NEGATIVE (NEGATIVE); URINE BLOOD DIPSTICK MODERATE (NEGATIVE); URINE COLOR YELLOW; URINE GLUCOSE - DIPSTICK NEGATIVE (NEGATIVE); URINE KETONE NEGATIVE (NEGATIVE); URINE LEUK ESTERASE TRACE (NEGATIVE); URINE PH 5.5 (4.5-8.0); URINE PROTEIN - DIPSTICK >=300 mg/dL (NEG-TRACE); URINE SPECIFIC GRAVITY 1.025; URINE UROBILINOGEN - DIPSTICK 0.2 E.U./dL (0.2)
[2020-08-25 10:56] LABS: ALBUMIN 4.5 g/dL (3.2-5.0); ALKALINE PHOSPHATASE 61 u/l (38-126); ANION GAP 12 (6-22 (CALC)); BILIRUBIN, TOTAL 1.4 mg/dL (0.0-1.4); BUN 12 mg/dL (9-20); BUN/CREATININE RATIO 14 (12-20 (CALC)); CARBON DIOXIDE 26 mmol/l (22-30); CHLORIDE 98 mmol/l (95-108); CREATININE 0.9 mg/dL (0.7-1.3); GFR > 60 ML/MIN (>=60 (CALC)); GFR FOR AFR.AMER. > 60 ML/MIN (>=60 (CALC)); LIPASE 78 u/l (23-300); POTASSIUM 3.9 mmol/l (3.5-5.1); SGOT/AST 21 u/l (17-59); SODIUM 133 mmol/l (137-146); TOTAL PROTEIN 7.7 g/dL (6.3-8.2)
--- NOTE | 2020-08-25 11:00 | NUR ---
PT RESTING IN ROOM. NO DISTRESS NOTED.
[2020-08-25 11:02] LABS: URINE NITRITE - DIPSTICK NEGATIVE (Negative)
[2020-08-25 11:03] LABS: URINE EPITHELIAL CELLS FEW EPI/hpf (0-FEW); URINE MUCUS MODERATE hpf (NONE-FEW); URINE WBC 0-2 WBC/hpf (0-5)
--- NOTE | 2020-08-25 12:32 | NUR ---
Reassessment of patient completed. No distress noted.
--- NOTE | 2020-08-25 13:30 | NUR ---
Reassessment of patient completed. No distress noted.
--- NOTE | 2020-08-25 14:46 | NUR ---
Reassessment of patient completed. No distress noted.
[2020-08-25 16:14] VITALS: BP 108/65
[2020-08-25 19:19] VITALS: BP 126/75
--- NOTE | 2020-08-25 21:03 | NUR ---
ASSUMED CARE FROM [facility]. PHYSICAL ASSESMENT COMPLETE. PT CURRENTLY DENIES PAIN OR DISCOMFORT. SCHEDULED MEDICATIONS AND PRN MEDICATION ADMINISTERED, SEE E-MAR. PT DENIES ANY NEEDS AT THIS TIME. PLAN OF CARE REVIEWED, PT DENIES QUESTIONS, VERBALIZES UNDERSTANDING. ITEMS WITHIN REACH, BED LOCKED IN LOW POSITION W/ BEDRAILS UP X2. CALL KAMARA WITHIN REACH, AGREES TO CALL PRN.
[2020-08-25 23:27] VITALS: BP 123/71
--- NOTE | 2020-08-26 00:06 | NUR ---
PT LAYING IN BED WITH EYES CLOSED, APPEARS TO BE SLEEPING, APPEARS COMFORTABLE AND IN NO DISTRESS. RESPIRATIONS REGULAR AND UNLABORED. ITEMS REMAIN WITHIN REACH, CALL KAMARA REMAINS WITHIN REACH. BED REMAINS LOCKED AND IN LOW POSITION WITH BEDRAILS UP X2. WILL CONTINUE TO MONITOR.
[2020-08-26 03:12] VITALS: BP 122/74
--- NOTE | 2020-08-26 04:33 | NUR ---
PT RESTING IN BED, NO SIGNS OF DISTRESS NOTED, RESP EVEN AND UNLABORED. PT VOICES NO NEEDS OR COMPLAINTS AT THIS TIME. CALL LIGHT IN REACH, CONTINUE TO MONITOR.
--- NOTE | 2020-08-26 07:00 | NUR ---
PT REPORT RECEIVED FROM NIGHT NURSEILEANA.
[2020-08-26 07:30] VITALS: BP 128/75
--- NOTE | 2020-08-26 08:00 | NUR ---
PT WAS FOUND RESTING IN BED;PT IS A&O X3;VS AND ASSESSMENT WERE COMPLETED;HEART SOUNDS ARE IRREGULAR IN RATE AND RHYTHM;TELE IS IN PLACE;LUNG SOUNDS ARE CLEAR;RESPIRATIONS ARE EVEN AND UNLABORED ON RA;#22G IV IN LW IS RUNNING NS@100ML/HR;IV SITE IS FREE OF COMPLICATIONS AT THIS TIME;SAFETY PRECAUTIONS IN PLACE;CALL LIGHT WITHIN REACH;WILL CONTNUE TO MONITOR.
[2020-08-26 09:17] LABS: HEMATOCRIT 37.9 % (39.0-50.0); HEMOGLOBIN 12.1 g/dl (14.0-18.0); MEAN CELL VOLUME 84.2 fL CALC (80.0-100.0); MEAN CORPUSCULAR HGB 26.9 pG CALC (26.0-32.0); MEAN CORPUSCULAR HGB CONC 31.9 g/dL CAL (32.0-36.0); RED BLOOD COUNT 4.5 mill/uL (4.70-6.10); RED CELL DISTRI WIDTH 15.7 % (11.5-15.5)
[2020-08-26 09:38] LABS: ANION GAP 10 (6-22 (CALC)); BUN 12 mg/dL (9-20); BUN/CREATININE RATIO 16 (12-20 (CALC)); CARBON DIOXIDE 25 mmol/l (22-30); CHLORIDE 101 mmol/l (95-108); CREATININE 0.7 mg/dL (0.7-1.3); GFR > 60 ML/MIN (>=60 (CALC)); GFR FOR AFR.AMER. > 60 ML/MIN (>=60 (CALC)); POTASSIUM 3.4 mmol/l (3.5-5.1); SODIUM 133 mmol/l (137-146)
--- NOTE | 2020-08-26 10:35 | NUR ---
AND TOMA DUNN AT BEDSIDE DISCUSSING POC WITH PT.
--- NOTE | 2020-08-26 12:00 | NUR ---
PT WAS FOUND RESTING IN BED EATING LUNCH;PT HAS NO COMPLAINTS OF PAIN AT THIS TIME;TELE IS IN PLACE;SAFETY PRECAUTIONS IN PLACE;CALL LIGHT WITHIN REACH;WILL CONTINUE TO MONITOR.
[2020-08-26 16:00] VITALS: BP 155/82
--- NOTE | 2020-08-26 16:00 | NUR ---
PT WAS FOUND SITTING ON SIDE OF BED RELAXING;TELE IS IN PLACE;#22G IV IN LW IS RUNNING NS@10ML/HR;IV SITE IS FREE OF COMPLICATIONS AT THIS TIME;SAFETY PRECAUTIONS IN PLACE;CALL LIGHT WITHIN REACH;WILL CONTINUE TO MONITOR.
[2020-08-26 19:00] VITALS: BP 141/80
--- NOTE | 2020-08-26 19:36 | NUR ---
PHYSICAL ASSESMENT COMPLETE. PT CURRENTLY DENIES PAIN OR DISCOMFORT. SCHEDULED MEDICATIONS AND PRN MEDICATION ADMINISTERED, SEE E-MAR. PT DENIES ANY NEEDS AT THIS TIME. PLAN OF CARE REVIEWED, PT DENIES QUESTIONS, VERBALIZES UNDERSTANDING. ITEMS WITHIN REACH, BED LOCKED IN LOW POSITION W/ BEDRAILS UP X2. CALL KAMARA WITHIN REACH, AGREES TO CALL PRN.
[2020-08-26 23:51] VITALS: BP 144/77
[2020-08-27 04:36] VITALS: BP 147/86
[2020-08-27 05:45] LABS: HEMATOCRIT 41.7 % (39.0-50.0); HEMOGLOBIN 12.8 g/dl (14.0-18.0); MEAN CELL VOLUME 85.3 fL CALC (80.0-100.0); MEAN CORPUSCULAR HGB 26.2 pG CALC (26.0-32.0); MEAN CORPUSCULAR HGB CONC 30.7 g/dL CAL (32.0-36.0); RED BLOOD COUNT 4.89 mill/uL (4.70-6.10); RED CELL DISTRI WIDTH 15.5 % (11.5-15.5)
[2020-08-27 06:10] LABS: ANION GAP 15 (6-22 (CALC)); BUN 12 mg/dL (9-20); BUN/CREATININE RATIO 15 (12-20 (CALC)); CARBON DIOXIDE 24 mmol/l (22-30); CHLORIDE 100 mmol/l (95-108); CREATININE 0.8 mg/dL (0.7-1.3); GFR > 60 ML/MIN (>=60 (CALC)); GFR FOR AFR.AMER. > 60 ML/MIN (>=60 (CALC)); POTASSIUM 3.6 mmol/l (3.5-5.1); SODIUM 135 mmol/l (137-146)
[2020-08-27 06:36] LABS: MAGNESIUM 1.7 mg/dL (1.6-2.3)
--- NOTE | 2020-08-27 07:00 | NUR ---
RECIEVED REPORT FROM JOSE ANTONIO TEJEDA
[2020-08-27 07:10] VITALS: BP 170/90
--- NOTE | 2020-08-27 08:09 | NUR ---
PT SITTING IN RECYLINER EATING BREAKFAST. PT IS A/O X3. ASSESSMENT AND VITALS OBTAINED. BP 170/90, HR 94, O2 96% ON ROOM AIR. RESPIRATIONS ARE EVEN AND UNLABORED WITH NO DISTRESS NOTED. LUNG SOUNDS ARE CLEAR. HERAT RHYTHM IS IRREGUALR WITH TELE IN PLACE, AFIB PER ER MONITORING. BOWEL SOUNDS ARE ACTIVE. #22G IN LH INFUSING IWTH IVF PER ORDER, SITE REMAINS HEALTHY AND PATENT. RADIAL AND PEDAL PULSES STRONG. 1+ EDEMA NOTED TO BLE. SKIN INTACT. PT COMPLAINS OF 8/10 HEAD ACHE. PT MEDICATED PER EMAR. PT DENIES OF ANY OTHER NEEDS AT THIS TIME. ALL SAFETY PRECAUTIONS ARE IN PLACE WITH CALL LIGHT IN REACH. WILL CONTINUE TO MONITOR.
--- NOTE | 2020-08-27 09:32 | NUR ---
DR KING AT BEDSIDE
[2020-08-27 10:17] VITALS: BP 145/95
--- NOTE | 2020-08-27 10:40 | NUR ---
REASSESSMENT OF BP RESULTING IN 145/95, HR 86. SCHEDULED CATAPRES ADMINISTERED ALONG WITH MOTRIN TO ASSIST WITH HEADACHE. PT DENIES OF ANY OTHER NEEDS AT THIS TIME. ALL SAFETY PRECAUTIONS ARE IN PLACE. WILL CONTINUE TO MONITOR
--- NOTE | 2020-08-27 12:00 | NUR ---
PT RESTING IN SEMI FOWLERS POSITION. RESPIRATIONS ARE EVEN AND UNLABORED WITH NO DISTRESS NOTED. #22G IN LH INFUSING WITH IVF PER ORDER, SITE REMAINS HEALTHY AND PATENT. PT DENIES OF ANY PAINS AT THIS TIME. PT REQUEST FOR FAN, PROVIDED. PT DENIES OF ANY OTHER NEEDS AT THIS TIME. ALL SAFETY PRECAUTIONS ARE IN PLACE WITH CALL LIGHT IN REACH. WILL CONTINUE TO MONITOR.
[2020-08-27 12:26] VITALS: BP 107/64
[2020-08-27 14:44] VITALS: BP 147/95
--- NOTE | 2020-08-27 15:56 | NUR ---
PT RESTING IN SEMI FOWLERS POSITION. PT REMAINS A/O X3. #22G IN LH REMAINS INFUSING WITH IVF PER ORDER, SITE REMAINS HEALTHY AND PATENT. TELE MONITORING IN PLACE, AFIB PER ER MONITORING. PT DENIES OF ANY PAINS PAINS OR DISCOMFORTS AT THIS TIME. ALL SAFETY PRECAUTIONS ARE IN PLACE WITH CALL LIGHT IN REACH. ENCOURAGED TO CALL FOR ASSISTANCE IF NEEDED. WILL CONTINUE TO MONITOR.
[2020-08-27 19:00] VITALS: BP 128/82
--- NOTE | 2020-08-27 20:00 | NUR ---
PATIENT RESTING IN BED AT THIS TIME-POSITIONED ON LEFT SIDE WITH C-PAP IN PLACE. PATIENT REMOVED C-PAP AND IS AWAKE ALERT AND ORIENTEDX3. PATIENT STATES THAT HE IS FEELIN A LITTLE "SHAKEY". PATIENT ACCU-CHECK WAS CHECKED AND WAS 108. PATIENT PROVIDED WITH SNACK AT THIS TIME. ALSO PROVIDED WITH WARM BLANKET AND ROOM TEMP WAS IMPREASED PER PATIENT REQUEST. PATIENT IS AFEBRILE AT THIS TIME. TELE MONITOR IN PLACE. PATIENT WITH IV SITE TO LEFT HAND WITH IVF AT KVO RATE. SITE REMAINS HEALTHY AT THIS TIME. SLIGHT BLE SWELLING NOTED. VOIDING DINESH URINE IN URINAL AT BEDSIDE. SAFETY PRECAUTIONS REINFORCED. CALL LIGHT IN REACH. WILL CONT TO MONITOR.
--- NOTE | 2020-08-27 21:00 | NUR ---
PATIENT RESTING IN BED-STATES THAT HE IS FEELING BETTER SINCE EATING AND GETTING BLANKET. DENIES ANY MORE FEELING OF SHAKES. CAN ASSISTED PATIENT WITH FOOT CARE PER PATIENT REQUEST. VOIDING QS DINESH URINE IN URINAL. CALL LIGHT IN REACH. WILL CONT TO MONITOR.
--- NOTE | 2020-08-27 23:45 | NUR ---
PATIENT RESTING IN BED AT THIS TIME POSITIONED ON LEFT SIDE WITH C-PAP IN PLACE. EYES ARE CLOSED. RESPS ARE EVEN AND UNLABORED. TELE MONITOR IN PLACE. CALL LIGHT IN REACH. WILL CONT TO MONITOR.
[2020-08-28 04:00] VITALS: BP 151/89
--- NOTE | 2020-08-28 04:30 | NUR ---
PATIENT RESTING IN BED AT THIS TIME WITH C-PAP IN PLACE. PATIENT WITH TEMP-100.8. PATIENT MEDICATED WITH TYLENOL 650MG PO FOR TEMP. TELE MONITOR IN PLACE. IVF PATENT AND INFUSING VIA LEFT HAND AT KVO RATE. CALL LIGHT IN REACH. WILL CONT TO MONITOR.
--- NOTE | 2020-08-28 05:30 | NUR ---
PATIENT RESTING IN BED WITH C-PAP IN PLACE. TEMP AT THIS TIME IS 98.3. IVF PATENT AND INFUSING VIA LEFT HAND SITE AT KVO RATE. MERRUM HUNG ORDERED. VOIDING QS YELLOW URINE. CALL LIGHT IN REACH. WILL CONT TO MONITOR.
[2020-08-28 05:35] LABS: HEMOGLOBIN 11.5 g/dl (14.0-18.0); MEAN CELL VOLUME 83.1 fL CALC (80.0-100.0); MEAN CORPUSCULAR HGB 26.9 pG CALC (26.0-32.0); MEAN CORPUSCULAR HGB CONC 32.4 g/dL CAL (32.0-36.0); RED BLOOD COUNT 4.27 mill/uL (4.70-6.10); RED CELL DISTRI WIDTH 15.2 % (11.5-15.5)
[2020-08-28 05:43] LABS: HEMATOCRIT 35.5 % (39.0-50.0)
[2020-08-28 06:02] LABS: ANION GAP 11 (6-22 (CALC)); BUN 11 mg/dL (9-20); BUN/CREATININE RATIO 15 (12-20 (CALC)); CARBON DIOXIDE 23 mmol/l (22-30); CHLORIDE 101 mmol/l (95-108); CREATININE 0.8 mg/dL (0.7-1.3); GFR > 60 ML/MIN (>=60 (CALC)); GFR FOR AFR.AMER. > 60 ML/MIN (>=60 (CALC)); POTASSIUM 3.7 mmol/l (3.5-5.1); SODIUM 131 mmol/l (137-146)
--- NOTE | 2020-08-28 07:00 | NUR ---
RECIEVED REPORT FROM JOSE ANTONIO HOOPER
[2020-08-28 07:35] VITALS: BP 122/80
--- NOTE | 2020-08-28 08:04 | NUR ---
PT SITTING UP ON SIDE OF BED. PT IS A/O X3. ASSESSMENT AND VITALS COMPLETED. BP 122/80, HR 79, O2 93% ON ROOM AIR. RESPIRATIONS ARE EVEN AND UNLABORED. LUNG SOUNDS ARE CLEAR. HEART RHYTHM IRREGULAR, AFIB PER ER MONITORING. BOWEL SOUNDS ARE ACTIVE. RADIAL AND PEDAL PULSES STRONG. 1+ EDEMEA NOTED TO BLE. #22G IN LH REMOAINS HEALTHY AND PATENT. SKIN INTACT. PT DENIES OF ANY PAINS OR DISCOMFORTS. ALL SAFETY PRECAUTIONS ARE IN PLACE WITH CALL LIGHT IN REACH. WILL CONTINUE TO MONITOR.
--- NOTE | 2020-08-28 08:45 | NUR ---
DR KING AT BEDSIDE
--- NOTE | 2020-08-28 10:02 | NUR ---
CONSULT WITH DR SÁNCHEZ COMPLETED.
[2020-08-28 10:28] VITALS: BP 138/91
[2020-08-28 12:13] VITALS: BP 177/92
--- NOTE | 2020-08-28 12:19 | NUR ---
BP RESULTING IN 177/92, HR 85. SCHEULDED MEDICATIONS ADMINISTERED. RESPIRATIONS ARE EVEN AND UNLABORED WITH NO DISRTESS NOTED. #22G IN LH REMAINS HEALTHY AND PATENT. PT DENIES OF ANY NEEDS AT THIS TIME. PT EDUCATED ON HOLDEN CONSULT. PT VERBLAIZED UNDERSTANDING. ALL SAFETY PERCAUTIONS ARE IN PLACE WITH CALL LIGHT IN REACH. WILL CONTINUE TO MONITOR.
[2020-08-28 12:33] VITALS: BP 148/80
--- NOTE | 2020-08-28 12:33 | NUR ---
REASSESSMENT OF BP RESULTING IN 148/80, HR 92. RESPIRATIONS REMAINS EVEN AND UNLABORED.
[2020-08-28] MEDS ORDERED: CIPROFLOXACN500 MG PO (12:44)
--- NOTE | 2020-08-28 14:16 | NUR ---
PT EDUCATED ON DISCHARGE INSTRUCTIONS AND NEW MEDICATIONS. PT VERBLAIZED UNDERSTANDING. #22G IN LH REMOVED WITH CATHATER STILL INTACT. TELE MONITORING REMOVED. ER NOTIFIED.
--- NOTE | 2020-08-28 14:20 | NUR ---
Discharge instructions given. Patient verbalizes understanding of same. Discharged in stable condition via Wheelchair to Home with staff. All belongings sent with pt. PT D/C HOME IN STABLE CONDITION VIA WHEELCHAIR WITH ALL BELONGINGS AND DISCHARGE INSTRUCTIONS ACCOMPAINED BY STAFF AND .
== END 2020-08-28 14:18 | disposition home or self-care (01) | DRG 872 ==
LOC: ED 09:40 → ED-I 12:48 → ED 13:05 → MS2 13:06
PROVIDERS: Family Medicine; Nurse Practitioner; ADMIT Internal Medicine; ATTEND Internal Medicine
DX: A41.9 Sepsis, unspecified organism (principal); N39.0 Urinary tract infection, site not specified; Z68.42 Body mass index [BMI] 45.0-49.9, adult; N41.9 Inflammatory disease of prostate, unspecified; E11.9 Type 2 diabetes mellitus without complications; I11.0 Hypertensive heart disease with heart failure; I50.9 Heart failure, unspecified; I48.91 Unspecified atrial fibrillation; E78.5 Hyperlipidemia, unspecified; E66.01 Morbid (severe) obesity due to excess calories; G47.33 Obstructive sleep apnea (adult) (pediatric); J45.909 Unspecified asthma, uncomplicated; B96.20 Unspecified Escherichia coli [E. coli] as the cause of diseases classified elsewhere; Z85.528 Personal history of other malignant neoplasm of kidney; Z90.5 Acquired absence of kidney; Z79.01 Long term (current) use of anticoagulants; Z79.84 Long term (current) use of oral hypoglycemic drugs; Z87.442 Personal history of urinary calculi; Z20.822 Contact with and (suspected) exposure to COVID-19
CPT/HCPCS: G0378; Q3014; Q9967

== ENCOUNTER 2020-11-29 15:14 | Emergency (ER) | payer OTHER, MEDICARE ==
[2020-11-29 19:06] LABS: HEMATOCRIT 39.6 % (39.0-50.0); HEMOGLOBIN 13.1 g/dl (14.0-18.0); IMMATURE GRANULOCYTES 0.2 % (0.0-5.0); MEAN CELL VOLUME 84.4 fL CALC (80.0-100.0); MEAN CORPUSCULAR HGB 27.9 pG CALC (26.0-32.0); MEAN CORPUSCULAR HGB CONC 33.1 g/dL CAL (32.0-36.0); NEUT# 7.73 thou/uL (1.82-7.42); RED BLOOD COUNT 4.69 mill/uL (4.70-6.10); RED CELL DISTRI WIDTH 15.1 % (11.5-15.5)
[2020-11-29 19:19] LABS: ALBUMIN 3.8 g/dL (3.2-5.0); ALKALINE PHOSPHATASE 65 u/l (38-126); ANION GAP 15 (6-22 (CALC)); BUN 16 mg/dL (9-20); BUN/CREATININE RATIO 19 (12-20 (CALC)); CARBON DIOXIDE 24 mmol/l (22-30); CHLORIDE 100 mmol/l (95-108); CREATININE 0.8 mg/dL (0.7-1.3); ETHYL ALCOHOL 0 mg/dl (0-30); GFR > 60 ML/MIN (>=60 (CALC)); GFR FOR AFR.AMER. > 60 ML/MIN (>=60 (CALC)); LIPASE 134 u/l (23-300); POTASSIUM 3.6 mmol/l (3.5-5.1); SGOT/AST 26 u/l (17-59); SODIUM 135 mmol/l (137-146); TOTAL PROTEIN 6.5 g/dL (6.3-8.2)
[2020-11-29 19:24] LABS: BILIRUBIN, TOTAL 0.5 mg/dL (0.0-1.4)
[2020-11-29 19:39] LABS: ACT PARTIAL THROMBO TIME 26.4 SECONDS (20.0-32.5); INTERNATIONAL NORMALIZED RATIO 1.1 RATIO (0.7-1.3); PROTHROMBIN TIME 11.4 SECONDS (9.0-12.5)
[2020-11-29 22:47] VITALS: BP 144/88
== END 2020-11-29 22:48 | DRG 563 ==
LOC: ED 15:14
DX: S82.032A Displaced transverse fracture of left patella, initial encounter for closed fracture (principal); I11.0 Hypertensive heart disease with heart failure; I50.9 Heart failure, unspecified; E11.9 Type 2 diabetes mellitus without complications; I48.91 Unspecified atrial fibrillation; E78.5 Hyperlipidemia, unspecified; J45.909 Unspecified asthma, uncomplicated; W01.0XXA Fall on same level from slipping, tripping and stumbling without subsequent striking against object, initial encounter; Y92.008 Other place in unspecified non-institutional (private) residence as the place of occurrence of the external cause; Z85.528 Personal history of other malignant neoplasm of kidney; Z79.84 Long term (current) use of oral hypoglycemic drugs; Z20.822 Contact with and (suspected) exposure to COVID-19
CPT/HCPCS: L1830

== ENCOUNTER 2022-01-12 10:23 | Emergency (ER) | payer OTHER, MEDICARE ==
[~2022-01-12] VITALS: Ht 182.9 cm; Wt 118.0 kg
[2022-01-12 10:29] VITALS: BP 149/93
[2022-01-12] MEDS ORDERED: MUPIROCIN21 TOP (10:43)
[2022-01-12] MEDS ORDERED: ALL DAY10 MG PO (10:43)
[2022-01-12] MEDS ORDERED: CEPHALEXIN500 M1 PO (10:43)
[2022-01-12 10:45] VITALS: BP 129/81
[2022-01-12 10:50] VITALS: BP 129/81
== END 2022-01-12 11:01 | disposition home or self-care (01) | DRG 603 ==
LOC: ED 10:23
DX: L03.114 Cellulitis of left upper limb (principal); L03.113 Cellulitis of right upper limb; I11.0 Hypertensive heart disease with heart failure; I50.9 Heart failure, unspecified; E11.9 Type 2 diabetes mellitus without complications; I48.91 Unspecified atrial fibrillation; E78.5 Hyperlipidemia, unspecified; J45.909 Unspecified asthma, uncomplicated; E66.9 Obesity, unspecified; Z85.528 Personal history of other malignant neoplasm of kidney; Z79.84 Long term (current) use of oral hypoglycemic drugs

== ENCOUNTER 2022-03-17 09:13 | Emergency (ER) | payer OTHER, MEDICARE ==
[~2022-03-17] VITALS: Ht 182.9 cm; Wt 169.0 kg
[~2022-03-17 09:13] MED LIST changes: +ALL DAY10 MG PO; +CEPHALEXIN500 M1 PO; +MUPIROCIN21 TOP
[2022-03-17 09:38] VITALS: BP 196/90
[2022-03-17 09:46] VITALS: BP 141/81
[2022-03-17 10:11] VITALS: BP 141/81
[2022-03-17] MEDS ORDERED: DOXY-CAPS100 MG PO ×2 (10:11→10:26)
[2022-03-17] MEDS ORDERED: MUPIROCIN21 TOP ×2 (10:11→10:26)
[2022-03-17] MEDS ORDERED: ALL DAY10 MG PO (10:26)
[2022-03-25] MEDS ORDERED: DOXY-CAPS100 MG PO (14:52)
== END 2022-03-17 10:29 | disposition home or self-care (01) | DRG 603 ==
LOC: ED 09:13
DX: L03.114 Cellulitis of left upper limb (principal); L03.113 Cellulitis of right upper limb

== ENCOUNTER 2022-08-17 07:05 | Emergency (ER) | payer OTHER, MEDICARE ==
[~2022-08-17] VITALS: Ht 182.9 cm; Wt 165.1 kg
[~2022-08-17 07:05] MED LIST changes: +DOXY-CAPS100 MG PO
[2022-08-17 07:24] VITALS: BP 144/75
[2022-08-17 07:31] VITALS: BP 141/72
[2022-08-17] MEDS ORDERED: VIBRAMYCIN100 M2 PO (07:32)
[2022-08-17 08:53] VITALS: BP 141/72
== END 2022-08-17 08:50 | disposition home or self-care (01) | DRG 603 ==
LOC: ED 07:05
DX: L03.114 Cellulitis of left upper limb (principal); L03.113 Cellulitis of right upper limb; S50.811A Abrasion of right forearm, initial encounter; S60.512A Abrasion of left hand, initial encounter; L25.9 Unspecified contact dermatitis, unspecified cause; I11.0 Hypertensive heart disease with heart failure; I50.9 Heart failure, unspecified; E11.9 Type 2 diabetes mellitus without complications; I48.91 Unspecified atrial fibrillation; E78.5 Hyperlipidemia, unspecified; J45.909 Unspecified asthma, uncomplicated; W19.XXXA Unspecified fall, initial encounter; Y92.89 Other specified places as the place of occurrence of the external cause; Z85.528 Personal history of other malignant neoplasm of kidney; Z90.5 Acquired absence of kidney; Z79.84 Long term (current) use of oral hypoglycemic drugs

== ENCOUNTER 2023-10-29 17:15 | Emergency (ER) | payer OTHER, MEDICARE ==
[~2023-10-29] VITALS: Ht 182.9 cm; Wt 154.2 kg
[2023-10-29] VITALS (8 sets, daily range): BP systolic 99–113; BP diastolic 54–66
[~2023-10-29 17:15] MED LIST changes: +BENZONATATE200 MG PO; +MEDDOSEPAK PO; +SYMBICORT 80-4.5MCG IN; +VIBRAMYCIN100 M2 PO
[2023-10-29] MEDS ORDERED: TAMSULOSIN HCL 0.4 MG CAP PO ONE (17:35)
[2023-10-29 18:03] LABS: BASO% 0.1 % (0-3); HEMATOCRIT 40.4 % (39.0-50.0); HEMOGLOBIN 12.9 g/dl (14.0-18.0); IMMATURE GRANULOCYTES 0.3 % (0.0-5.0); MEAN CORPUSCULAR HGB 26.5 pG CALC (26.0-32.0); MEAN CORPUSCULAR HGB CONC 31.9 g/dL CAL (32.0-36.0); MONO% 7.3 % (2-13); NEUT# 17.1 thou/uL (1.82-7.42); NEUT% 84.3 % (42-76); RED BLOOD COUNT 4.87 mill/uL (4.70-6.10); RED CELL DISTRI WIDTH 15.3 % (11.5-15.5)
[2023-10-29 18:07] LABS: URINE BLOOD DIPSTICK Moderate (NEGATIVE); URINE GLUCOSE - DIPSTICK Negative (NEGATIVE); URINE KETONE Negative (NEGATIVE); URINE NITRITE - DIPSTICK Negative (Negative); URINE PH 5.5 (4.5-8.0); URINE PROTEIN - DIPSTICK 100 mg/dL (NEG-TRACE); URINE SPECIFIC GRAVITY 1.025; URINE UROBILINOGEN - DIPSTICK 0.2 E.U./dL (0.2)
[2023-10-29 18:08] LABS: URINE COLOR Yellow
[2023-10-29 18:09] LABS: URINE LEUK ESTERASE Moderate (NEGATIVE)
[2023-10-29 18:18] LABS: URINE WBC 20-50 WBC/hpf (0-5)
[2023-10-29 18:23] LABS: ALBUMIN 4.4 g/dL (3.2-5.0); CREATININE 1.1 mg/dL (0.7-1.3); POTASSIUM 3.4 mmol/l (3.5-5.1); TOTAL PROTEIN 8.1 g/dL (6.3-8.2)
[2023-10-29 18:24] LABS: BILIRUBIN, TOTAL 1.6 mg/dL (0.2-1.3)
[2023-10-29] MEDS ORDERED: TAMSULOSIN0.4 MG PO (19:02)
[2023-10-29] MEDS ORDERED: CIPROFLOXACN500 MG PO (19:02)
== END 2023-10-29 19:31 | disposition home or self-care (01) | DRG 726 ==
LOC: ED 17:15
PROVIDERS: Emergency Medicine; Nurse Practitioner
DX: N40.1 Benign prostatic hyperplasia with lower urinary tract symptoms (principal); R33.8 Other retention of urine; N39.0 Urinary tract infection, site not specified; B96.89 Other specified bacterial agents as the cause of diseases classified elsewhere; I11.0 Hypertensive heart disease with heart failure; I50.9 Heart failure, unspecified; E11.9 Type 2 diabetes mellitus without complications; I48.91 Unspecified atrial fibrillation; E78.5 Hyperlipidemia, unspecified; E66.01 Morbid (severe) obesity due to excess calories; Z85.528 Personal history of other malignant neoplasm of kidney; Z90.5 Acquired absence of kidney; Z79.84 Long term (current) use of oral hypoglycemic drugs

== ENCOUNTER 2024-07-11 16:44 | Emergency (ER) | payer OTHER, MEDICARE ==
[~2024-07-11] VITALS: Ht 182.9 cm; Wt 154.0 kg
[~2024-07-11 16:44] MED LIST changes: +AMOX/K CLAV875 M1 PO
[2024-07-11 19:36] LABS: URINE BLOOD DIPSTICK Moderate (NEGATIVE); URINE GLUCOSE - DIPSTICK Negative (NEGATIVE); URINE KETONE Negative (NEGATIVE); URINE LEUK ESTERASE Trace (NEGATIVE); URINE NITRITE - DIPSTICK Negative (Negative); URINE PROTEIN - DIPSTICK >=300 mg/dL (NEG-TRACE); URINE SPECIFIC GRAVITY 1.025; URINE UROBILINOGEN - DIPSTICK 0.2 E.U./dL (0.2)
[2024-07-11 19:37] LABS: URINE COLOR Dark yellow
[2024-07-11 19:42] LABS: URINE WBC 20-50 WBC/hpf (0-5)
[2024-07-11 19:43] LABS: URINE BACTERIA FEW hpf; URINE SQUAMOUS EPITHELIAL CELL FEW EPI/hpf (0-FEW)
[2024-07-11 19:44] LABS: URINE HYALINE CAST FEW lpf (NONE-RARE)
[2024-07-11] MEDS ORDERED: PHENAZOPYRIDIN100 M1 PO (19:54)
[2024-07-11] MEDS ORDERED: BACTRIM DS1 TAB PO (19:54)
[2024-07-11] MEDS ORDERED: SULFAMETHOXAZOLE W/TRIMETHOPRI 1 COMBO TAB PO ONE (19:55)
[2024-07-11] MEDS ORDERED: PHENAZOPYRIDINE HCL 100 MG/TAB PO ONE (19:55)
[2024-07-11 20:08] VITALS: BP 154/78
[2024-07-14] MEDS ORDERED: MACROBID100 M1 PO (09:18)
== END 2024-07-11 20:08 | disposition home or self-care (01) | DRG 690 ==
LOC: ED 16:44
PROVIDERS: Family Medicine
DX: N39.0 Urinary tract infection, site not specified (principal); I11.0 Hypertensive heart disease with heart failure; I50.9 Heart failure, unspecified; E11.9 Type 2 diabetes mellitus without complications; I48.91 Unspecified atrial fibrillation; E78.5 Hyperlipidemia, unspecified; E66.01 Morbid (severe) obesity due to excess calories; Z79.84 Long term (current) use of oral hypoglycemic drugs; Z87.440 Personal history of urinary (tract) infections